=== PATIENT | male | born 1975 | race Caucasian/White ===

== ENCOUNTER 2024-01-20 21:21 | Emergency (ER) | payer OTHER, SELFPAY ==
[2024-01-20 21:25] VITALS: BP 158/116
[2024-01-20] MEDS: DECADRON 10 MG IV (21:46)
[2024-01-20] MEDS: PEPCID 20 MG IV (21:46)
[2024-01-20] MEDS: NSS 1000 IV (21:46)
[2024-01-20 22:41] VITALS: BP 129/79
--- NOTE | 2024-01-20 23:29 | ED.GENMED ---
History of Present Illness
General
Chief Complaint: Allergic Reaction
Source: patient
Exam Limitations: none
Time Seen by Provider: 01/20/24 21:33
Nursing documentation reviewed up to this point in time: agreed with
Travel History
Have you had any contact with someone who has COVID-19?: No
Do you have any symptoms of coronavirus? Fever > 100 degrees, chills, cough, shortness of breath, sore throat, loss of taste or smell, muscle aches, or headache?: No
History of Present Illness
History of Present Illness:
Patient to ED for allergic reaction. Ate something with nuts in it. Developed facial swelling, tingling in mouth, scratchy throat, vomiting. Took 100mg Benadryl [employer]. Brought to ED by spouse for eval. Has epipen at home but .
Past History
Past History
ED Past Medical History: Asthma and GERD
ED Past Surgical History: None
Social History
Tobacco: Non-smoker
Alcohol: Occasional
Drug: None
Personal:
Living: with family
Employment: Employed
Family History
Family History: Other (Noncontributory)
Review of Systems
Review of Systems
Allergies reviewed?: Yes
All Other Systems: ROS reviewed and negative except as documented in HPI and ROS
Constitutional: Reports no symptoms
EENT: Reports mouth swelling and other (scrratchy throat, swelling to lips, eyes)
Respiratory: Reports no symptoms
Cardiac: Reports no symptoms
ABD/GI: Reports nausea and vomiting
: Reports no symptoms
Musculoskeletal: Reports no symptoms
Skin: Reports itching
Neurological: Reports no symptoms
Psychiatric: Reports no symptoms
Phy Exam
General Physical Exam
General Presentation: well appearing and no apparent distress
General age: appears stated age
General Skin: warm and dry
General Habitus: normal
ENT Exam
ENT Exam: pharynx normal, neck supple and swallowing well
Cardiovascular Exam
Cardiovascular Exam: regular rate/rhythm and no edema
Pulmonary Exam
Pulmonary Exam: lungs clear and no respiratory distress
Gastrointestinal Exam
Gastrointestinal Exam: normal bowel sounds, non tender and soft
Musculoskeletal Exam
Musculoskeletal Exam: full ROM and neuro vasc intact
Skin Exam
Skin Exam: normal color, warm/dry and no rash
Psychiatric Exam
Psychiatric Exam: normal mood/affect
Course
Orders/Labs/Results
Orders:
Orders
01/20/24 21:38
0.9% Sodium Chloride 1000 ml [Nss] 1,000 ml IV BOLUS
Dexamethasone Sod Phosphate [Decadron] 10 mg IV NOW STA
Famotidine [Pepcid] 20 mg IV NOW STA
Vital Signs
Initial and Last Documented VS:
Initial Vital Signs
Temp Pulse Resp BP Pulse Ox
98 F 117 24 158/116 96
01/20/24 21:25 01/20/24 21:25 01/20/24 21:25 01/20/24 21:25 01/20/24 21:25
Last Documented Vital Signs
Temp Pulse Resp BP Pulse Ox
98 F 100 20 129/79 96
01/20/24 21:25 01/20/24 22:27 01/20/24 22:27 01/20/24 22:41 01/20/24 22:45
*Critical Care Note
Total Time (30-74mins, 75-104mins- exclusive of procedures): Not Applicable
Update Note
Update Note:
Improved with IVF, decadron, Pepcid, benadryl. WIll discharge home. To continue benadryl every 4-6 hours for thenext 24 hours and then as needed. Given instructions on s/s to return to ED and he is agreeable to plan.
ED Attending Note
-
Portions of this chart may have been created with voice recognition software.� Occasional wrong word or��sound alike� substitutions may have occurred due to the inherent limitations of voice recognition software.
Discharge Plan
Departure
Patient Disposition: Home (Routine Discharge)
Date of Disposition: 01/20/24
Time of Disposition: 23:35
Patient with high blood pressure during this ER visit?: No
Condition: Good
Covid-19: Not Applicable
Discharge Problem:
Allergic reaction
Instructions: Allergic Reaction ED
Prescriptions:
New
epinephrine [EpiPen] 0.3 mg/0.3 mL auto-injector
0.3 mg IM DIRECTED PRN (Reason: anaphylaxis) Qty: 1 2RF
prednisone 10 mg Tablet
See Rx Instructions .ROUTE .COMPLEX Qty: 30 0RF
Rx Instructions:
Take By Mouth:
40 mg daily x3 days, 30 mg daily x3 days,
20 mg daily x3 days, 10 mg daily x3 days.
No Action
fluticasone propion-salmeterol [Advair Diskus] 1 DISK blister with device
1 puff inhalation
rabeprazole [AcipHex] 20 MG tablet,delayed release (DR/EC)
20 mg PO DAILY
prednisone 10 MG tablet
10 mg PO BID Qty: 10 0RF
diphenhydramine HCl [Banophen] 50 MG capsule
50 mg PO Q6HPRN PRN (Reason: itch) Qty: 30 0RF
Referrals:
Joni Solares I., DO [Family Provider] -
Activity Restrictions/Additional Instructions:
Return to the emergency department immediately for any difficulty breathing or swallowing.
Interventions
Interventions:
*Risk Screen - Suicide Last Done: 01/20/24 21:25
*General Assessment Last Done: 01/20/24 21:25
*Neglect/Abuse Screening Last Done: 01/20/24 21:25
ED- Fall Risk Assessment Last Done: 01/20/24 22:29
ED- Cardiac Assessment Last Done: 01/20/24 22:29
ED- Pulmonary Assessment Last Done: 01/20/24 22:29
ED-Skin Assessment Last Done: 01/20/24 22:29
Discharge Date and Time
Print Language: CITIZ[place]
[2024-01-21] MEDS: BENADRYL 50 MG PO (00:05)
== END 2024-01-21 00:05 | disposition home or self-care (01) ==
LOC: EMR 21:21
PROVIDERS: EMERGENCY PHYSICIAN Emergency Medicine; FAMILY PHYSICIAN Internal Medicine
DX: R22.0 Localized swelling, mass and lump, head (principal); R11.2 Nausea with vomiting, unspecified; R20.2 Paresthesia of skin; T78.1XXA Other adverse food reactions, not elsewhere classified, initial encounter; X58.XXXA Exposure to other specified factors, initial encounter
CPT/HCPCS: 99284; 96374; 96375; 96361

== ENCOUNTER → 2024-11-30 09:03 | Outpatient (REF) | payer OTHER, SELFPAY | LOC: HWRAD 09:03 | PROVIDERS: ATTENDING PHYSICIAN Nurse Practitioner Family | DX: R79.89 Other specified abnormal findings of blood chemistry (principal) | CPT/HCPCS: 76700 ==

== ENCOUNTER → 2025-04-30 07:23 | Outpatient (REF) | payer OTHER, SELFPAY | LOC: RCS 07:23 | PROVIDERS: ATTENDING PHYSICIAN Internal Medicine Cardiovascular Disease; FAMILY PHYSICIAN Internal Medicine | DX: R06.02 Shortness of breath (principal) | CPT/HCPCS: 93306 ==